=== PATIENT | female | born 2000 | race Caucasian/White ===

== ENCOUNTER 2024-12-12 20:31 | Emergency (ER) | payer BC, OTHER ==
[2024-12-12 20:39] VITALS: BP 144/95; PULSE 86; RESP 20; TEMP 97.9; BMI 26.5
[2024-12-12] MEDS ORDERED: HIV POST EXPOSURE PROPHYLAXIS KIT PO ONE (21:55)
[2024-12-12] MEDS: HIV POST EXPOSURE PROPHYLAXIS KIT PO ONE (21:57)
[2024-12-12 22:02] LABS: BASO % 0.4 % (0-2.0); EOS % 0.9 % (0-4.5); HEMATOCRIT 39.1 % (32.4-45.2); HEMOGLOBIN 12.8 GM/dL (10.7-15.3); LYMPH % 41.1 % (8-40); MCH 28.6 pg (25.7-33.7); MCHC 32.9 g/dl (32.0-36.0); MONO % 7.8 % (3.8-10.2); NEUT % 49.8 % (42.8-82.8); PLATELET COUNT 287 10^3/uL (134-434); RBC 4.49 M/mm3 (3.60-5.2)
[2024-12-12 22:35] LABS: POTASSIUM 4.2 mmol/L (3.5-5.1)
[2024-12-12 22:38] LABS: ALBUMIN 4.2 g/dl (3.4-5.0); BLOOD UREA NITROGEN 12.9 mg/dL (7-18); CALCIUM 9.7 mg/dL (8.5-10.1)
[2024-12-12 22:42] LABS: CREATININE 0.7 mg/dL (0.55-1.3)
[2024-12-12 22:43] LABS: BILIRUBIN,TOTAL 0.3 mg/dL (0.2-1); TOT PROT 7.8 g/dl (6.4-8.2)
[2024-12-12 23:32] LABS: HIV INTERPRETATION NEGATIVE (NEGATIVE)
== END 2024-12-12 22:12 | disposition home or self-care (01) ==
LOC: JERFT 20:31
DX: Z77.21 Contact with and (suspected) exposure to potentially hazardous body fluids (principal)
CPT/HCPCS: 36415; 80053; 85025; 86803; 87389; 99283-25